=== PATIENT | male | born 1965 | race Caucasian/White ===

== ENCOUNTER 2017-10-30 10:45 | Day surgery (SDC) | payer MEDICAID ==
[~2017-10-30 10:45] MED LIST: DIAZ5TAB PO; FLO0.4C PO; GABA-532 PO; HYDR-565 PO; TRAM50TA2 PO
[2017-10-30] MEDS ORDERED: LIDOcaine 2% 5ml jelly ONE (11:32)
== END 2017-10-30 11:56 | disposition home or self-care (01) ==
LOC: WOUND CARE 10:45
PROVIDERS: ATTEND Surgery
DX: L97.511 Non-pressure chronic ulcer of other part of right foot limited to breakdown of skin (principal); G62.9 Polyneuropathy, unspecified; F12.10 Cannabis abuse, uncomplicated; Z72.89 Other problems related to lifestyle; Z87.891 Personal history of nicotine dependence
CPT/HCPCS: 97597; A6021; A6206

== ENCOUNTER 2017-11-13 10:14 | Outpatient (CLI) | payer MEDICAID | END 2017-11-13 11:31 | disposition home or self-care (01) | LOC: WOUND CARE 10:14 → EDSTATUS 10:30 → WOUND CARE 11:31 | PROVIDERS: ATTEND Surgery | DX: L97.511 Non-pressure chronic ulcer of other part of right foot limited to breakdown of skin (principal); G62.9 Polyneuropathy, unspecified; F12.10 Cannabis abuse, uncomplicated; Z72.89 Other problems related to lifestyle; Z87.891 Personal history of nicotine dependence | CPT/HCPCS: 99215; A4414; A6212 ==